=== PATIENT | female | born 1980 | race Caucasian/White ===

== ENCOUNTER 2020-07-03 11:26 | Outpatient (CLI) | payer OTHER ==
--- NOTE | 2020-07-04 09:49 | Mammography Report ---
BILATERAL DIGITAL SCREENING MAMMOGRAM 3D/2D: 07/03/2020 CLINICAL: Routine screening. Comparison is made to exams dated: 06/30/2019 mammogram and 07/12/2018 mammogram - [facility]. The tissue of both breasts is heterogeneously dense. This may lower the sensitivity of mammog emmanuelle. No significant masses, calcifications, or other findings are seen in either breast. There has been no significant interval change. IMPRESSION: NEGATIVE There is no mammographic evidence of malignancy. A 1 year screening mammogram is recommended. This exam was interpreted at Station ID: [id number]. NOTE: For mammograms, a report in lay terms will be sent to the patient. Approximately 15% of breast malignancies will not be visualized mammographically. In the management of a palpable breast mass, a negative mammogram must not discourage biopsy of a clinically suspicious lesion. Electronically Signed By: Aleisha garibay/[email or web address]:07/03/2020 12:25:17 ACR BI-RADS Category 1: Negative 3341F PARENCHYMAL PATTERN: (D) - The breast(s) demonstrate(s) heterogeneously dense fibroglandular aimee chin. BI-RADS CATEGORY: (1) - 1 RECOMMENDATION: (ANNUAL) - Recommend routine annual screening mammography. [id number] 1 year screening LATERALITY: (B)
== END 2020-07-03 11:27 | disposition home or self-care (01) ==
LOC: DI.N 11:26
DX: Z12.31 Encounter for screening mammogram for malignant neoplasm of breast (principal)
CPT/HCPCS: 77063; 77067

== ENCOUNTER 2020-10-06 14:50 | Emergency (ER) | payer OTHER ==
--- NOTE | 2020-10-06 16:35 | ED Physician Documentation ---
PD HPI UPPER EXT INJURY - Stated complaint Stated Complaint: FINGER LAC - Chief complaint Chief Complaint: Laceration - History obtained from History obtained from: Patient - History of Present Illness Location: Right, Finger (littel finger tip) Type of injury: Laceration (cutting food and sliced off tip of skin on little finger. Had trouble getting bleeding to stop.) Where injury occurred: Home Timing - onset: Today Timing - details: Abrupt onset, Still present Worsened by: Palpating Associated symptoms: No: Weakness, Numbness Similar symptoms before: Has not had sx before Review of Systems Constitutional: denies: Fever Nose: denies: Rhinorrhea / runny nose, Congestion Throat: denies: Sore throat Respiratory: denies: Cough Neurologic: denies: Focal weakness, Numbness PD PAST MEDICAL HISTORY - Past Medical History Past Medical History: No - Allergies Allergies/Adverse Reactions: Allergies Allergy/AdvReac Type Severity Reaction Status Date / Time No Known Drug Allergies Allergy Verified 10/06/20 15:00 PD ED PE NORMAL - Vitals Vital signs reviewed: Yes - General General: Alert and oriented X 3, No acute distress, Well developed/nourished - Derm Derm: Normal color, Warm and dry - Extremities Extremities: Other (right little finger tip with 1 cm area of avulsion of tissue, just to fatty tissue in center, with mild capillary bleeding. No FB. Distal nail is involved but not the nailbed. No disruption of the proximal nailbed. ) - Neuro Neuro: Alert and oriented X 3, No motor deficit, No sensory deficit Results - Vitals Vitals: Vital Signs - 24 hr 10/06/20 10/06/20 15:00 17:24 Temperature 37.0 C 36.5 C Heart Rate 66 72 Respiratory 18 19 Rate Blood Pressure 118/66 123/67 O2 Saturation 100 100 Oxygen O2 Source Room air PD MEDICAL DECISION MAKING - ED course Complexity details: considered differential (topical with Monsel's solution stopped the bleeding. Then vaseline imed strip and gauze then tube gauze pressure dressing. NO bleeding. ), d/w patient Departure - Departure Disposition: 01 Home, Self Care Clinical Impression: Avulsion, finger tip Qualifiers: Encounter type: initial encounter Qualified Code(s): S61.209A - Unspecified open wound of unspecified finger without damage to nail, initial encounter Condition: Stable Record reviewed to determine appropriate education?: Yes Instructions: ED Avulsion Dermal Follow-Up: SELVIN LOPEZ, DO [Primary Care Provider] - Comments: Leave the initial dressing on into tomorrow and can even leave it on for a day or more. After that remove it and assume normal skin wound care of cleaning with soap and water and applying some ointment and keeping it clean. The avulsion is small enough that it should heal in from the edges and be mostly skin with small scarring only. These are low likelihood for infection. Recheck if some infection does develop. Tylenol ibuprofen if needed for pains. Discharge Date/Time: 10/06/20 17:24
[2020-10-06 17:25] VITALS: BP 123/67
== END 2020-10-06 17:24 | disposition home or self-care (01) ==
LOC: ED 14:50
DX: S61.216A Laceration without foreign body of right little finger without damage to nail, initial encounter (principal); W26.0XXA Contact with knife, initial encounter; Y93.G1 Activity, food preparation and clean up
CPT/HCPCS: 99281; 99282

== ENCOUNTER 2021-11-11 12:48 | Emergency (ER) | payer OTHER ==
--- NOTE | 2021-11-11 13:47 | ED Physician Documentation ---
PD HPI DYSPNEA - Stated complaint Stated Complaint: C+ DIZZY/SOA - History obtained from History obtained from: Patient - Additional information Additional information: This is a healthy young woman with history of anemia and thalassemia, no possibility of . She is fully vaccinated against COVID with Moderna. She became symptomatic with COVID 8 days ago and subsequently tested positive about 6 days ago. From the perspective of the typical COVID system symptoms to be getting much better but today feels presyncopal with short of breath. She denies chest pain or pedal edema. Review of Systems Constitutional: reports: Fatigue. denies: Fever, Chills Nose: denies: Rhinorrhea / runny nose Throat: denies: Sore throat Cardiac: denies: Chest pain / pressure, Palpitations Respiratory: reports: Dyspnea. denies: Cough PD PAST MEDICAL HISTORY - Past Surgical History Past Surgical History: No - Allergies Allergies/Adverse Reactions: Allergies Allergy/AdvReac Type Severity Reaction Status Date / Time No Known Drug Allergies Allergy Verified 11/11/21 13:49 - Social History Does the pt smoke?: No Smoking Status: Never smoker Does the pt drink ETOH?: No Does the pt have substance abuse?: No PD ED PE NORMAL - Vitals Vital signs reviewed: Yes - General General: Alert and oriented X 3, No acute distress - HEENT HEENT: PERRL, EOMI - Neck Neck: Supple, no meningeal sign, No bony TTP - Cardiac Cardiac: RRR, No murmur - Respiratory Respiratory: No respiratory distress, Clear bilaterally - Extremities Extremities: No edema, No calf tenderness / cord - Neuro Neuro: Alert and oriented X 3, Normal speech Results - Vitals Vitals: Vital Signs - 24 hr 11/11/21 13:47 Temperature 37.1 C Heart Rate 61 Respiratory 18 Rate Blood Pressure 112/74 O2 Saturation 100 Oxygen O2 Source Room air - EKG (time done) 1359 Rate: Rate (enter#) (59) Rhythm: NSR [place]: Normal Intervals: Normal NV QRS: Normal Ischemia: Normal ST segments - Labs Labs: Laboratory Tests 11/11/21 11/11/21 11/11/21 14:13 14:13 14:13 WBC 4.4 L RBC 4.74 Hgb 9.6 L Hct 30.6 L MCV 64.6 L MCH 20.3 L MCHC 31.4 L RDW 14.0 Plt Count 149 Manual Slide Review Indicated D-Dimer 217.7 Sodium 138 Potassium 3.6 Chloride 103 Carbon Dioxide 25 Anion Gap 10.0 BUN 16 Creatinine 0.8 Estimated GFR (MDRD) 78 L Glucose 91 Calcium 9.0 Troponin I High Sens 11/11/21 14:13 WBC RBC Hgb Hct MCV MCH MCHC RDW Plt Count Manual Slide Review D-Dimer Sodium Potassium Chloride Carbon Dioxide Anion Gap BUN Creatinine Estimated GFR (MDRD) Glucose Calcium Troponin I High Sens < 2.3 L PD MEDICAL DECISION MAKING - ED course ED course: 41-year-old woman who was diagnosed with COVID 8 days ago now with presyncope and shortness of breath. Her lungs are clear and her saturations are 100%. Worry would be for post-COVID myocarditis or thromboembolic disease which we will screen for with EKG, troponin, and D-dimer. 41-year-old woman who has short of breath and dizziness in the setting of COVID. She appears well with a normal exam and unremarkable vital signs, pulse oximetry of 100%. She is anemic but in discussion with her hemoglobin of around 10 is her baseline. D-dimer and troponin were negative. The patient and family were counseled as to the diagnosis and need for follow- up. I counseled the patient with regard to signs and symptoms that would necessitate an urgent reevaluation in the emergency department. They understand they are welcome to return at any time if worse or if not improving as expected. This document was made in part using voice recognition software. While efforts are made to proofread this documents, sound alike and grammatical errors may occur. Departure - Departure Disposition: 01 Home, Self Care Clinical Impression: Dizziness, Dyspnea due to COVID-19 Condition: Good Record reviewed to determine appropriate education?: Yes Instructions: ED Dyspnea Shortness of Breath Comments: Call your doctor to arrange a follow-up appointment, make the next available appointment. In the interim, return anytime if worse or if new symptoms develop.
[2021-11-11 14:23] LABS: BASOPHILS % (AUTO) 0.2 %; EOSINOPHILS % (AUTO) 0.9 %; HCT - HEMATOCRIT 30.6 % (37.0-47.0); HGB - HEMOGLOBIN 9.6 g/dL (12.0-16.0); LYMPHOCYTES # (AUTO) 1.3 10^3/uL (1.5-3.5); LYMPHOCYTES % (AUTO) 28.3 %; MEAN CORPUSCULAR HEMOGLOBIN 20.3 pg (27.0-31.0); MEAN CORPUSCULAR HGB CONC 31.4 g/dL (32.0-36.0); MEAN CORPUSCULAR VOLUME 64.6 fL (81.0-99.0); MONOCYTES # (AUTO) 0.3 10^3/uL (0.0-1.0); MONOCYTES % (AUTO) 5.9 %; NEUTROPHILS # (AUTO) 2.8 10^3/uL (1.5-6.6); NEUTROPHILS % (AUTO) 64.2 %; PLT - PLATELET COUNT 149 10^3/uL (130-450); RED BLOOD COUNT 4.74 10^6/uL (4.20-5.40); WHITE BLOOD COUNT 4.4 x10^3/uL (4.8-10.8)
[2021-11-11 14:43] LABS: SLIDE REVIEW? Indicated
[2021-11-11 14:49] LABS: CREATININE 0.8 mg/dL (0.4-1.0)
[2021-11-11 14:53] LABS: POTASSIUM 3.6 mmol/L (3.5-5.0)
[2021-11-11 15:27] LABS: PLATELET ESTIMATE, MANUAL NORMAL (130-450,000) (NORMAL); PLATELET MORPHOLOGY NORMAL APPEARANCE (NORMAL)
[2021-11-11 15:30] VITALS: BP 127/78
== END 2021-11-11 15:30 | disposition home or self-care (01) ==
LOC: ED 12:48
DX: U07.1 COVID-19 (principal); R06.02 Shortness of breath; R42 Dizziness and giddiness; D64.9 Anemia, unspecified
CPT/HCPCS: 36415; 80048; 84484; 85025; 85379; 93005; 99283; 99284

== ENCOUNTER 2022-04-24 10:50 | Emergency (ER) | payer OTHER ==
[2022-04-24 11:09] VITALS: BP 100/68
--- NOTE | 2022-04-24 11:50 | ED Physician Documentation ---
PD HPI BACK PAIN - Stated complaint Stated Complaint: SEVERE BACK PAIN - Chief complaint Chief Complaint: Back Pain - History obtained from History obtained from: Patient - History of Present Illness Timing - onset: How many days ago (several) Timing - duration: Days Timing - details: Gradual onset Location: Lower, Right Quality: Pain, Spasm Associated symptoms: No: Fever, Weakness, Numbness, Incontinent of urine Improves with: Rest. No: Meds (OTC meds at home) Worsened by: Movement, Lifting, Twisting. No: Palpation Contributing factors: Lifting (she had been doing some lfiting and moving of box es and furniture. [place] a twinge of pain with lifting but not hurting that much. Pain increased more over next days and severe with spasms today.), Twisting Similar symptoms before: Has not had sx before Recently seen: Not recently seen Review of Systems Constitutional: denies: Fever, Chills, Myalgias GI: denies: Abdominal Pain, Nausea, Vomiting, Diarrhea : denies: Incontinent Skin: denies: Rash, Lesions Musculoskeletal: reports: Back pain. denies: Neck pain Neurologic: denies: Focal weakness, Numbness PD PAST MEDICAL HISTORY - Past Medical History Cardiovascular: None Respiratory: None Neuro: None Endocrine/Autoimmune: None Musculoskeletal: None - Past Surgical History Past Surgical History: No - Present Medications Home Medications: Ambulatory Orders Medication Instructions Recorded Confirmed HYDROcod/ACETAM 5/325 [[place] 5/325] 1 ea PO Q6H PRN #18 tablet 04/24/22 Lidocaine Patch 5% [Lidoderm Patch] 1 patch TOP DAILY PRN #10 patch 04/24/22 Meloxicam [Mobic] 7.5 mg PO BID 10 Days #20 tablet 04/24/22 tiZANidine [Zanaflex] 4 mg PO Q8H PRN #25 tablet 04/24/22 - Allergies Allergies/Adverse Reactions: Allergies Allergy/AdvReac Type Severity Reaction Status Date / Time No Known Drug Allergies Allergy Verified 11/11/21 13:49 - Social History Does the pt smoke?: No Smoking Status: Never smoker Does the pt drink ETOH?: No Does the pt have substance abuse?: No PD ED PE NORMAL - Vitals Vital signs reviewed: Yes - General General: Alert and oriented X 3, Well developed/nourished, Other (appears in pain from lower back, with guarded ROM and apparent spasms with mvoement.) - Abdomen Abdomen: Soft, Non tender - Female Female : Deferred - Rectal Rectal: Deferred - Back Back: No spinal TTP, Other (tender lower right muscles without trigger point per se. ) - Derm Derm: Normal color, No rash - Extremities Extremities: No edema, No calf tenderness / cord - Neuro Neuro: Alert and oriented X 3, No motor deficit, No sensory deficit, Normal speech Results - Vitals Vitals: Vital Signs - 24 hr 04/24/22 11:06 Temperature 37.0 C Heart Rate 80 Respiratory 19 Rate Blood Pressure 100/68 O2 Saturation 100 Oxygen O2 Source Room air PD MEDICAL DECISION MAKING - ED course Complexity details: considered differential (low back pain onset after use/lifting, without red flags on hisotyr.), d/w patient Departure - Departure Disposition: 01 Home, Self Care Clinical Impression: Acute low back pain due to trauma Condition: Stable Record reviewed to determine appropriate education?: Yes Instructions: ED Low Back Pain Injury Follow-Up: SELVIN LOPEZ DO [Primary Care Provider] - Prescriptions: Lidocaine Patch 5% [Lidoderm Patch] 1 patch TOP DAILY PRN #10 patch PRN Reason: pain Meloxicam [Mobic] 7.5 mg PO BID 10 Days #20 tablet HYDROcod/ACETAM 5/325 [[place] 5/325] 1 ea PO Q6H PRN #18 tablet PRN Reason: Pain tiZANidine [Zanaflex] 4 mg PO Q8H PRN #25 tablet PRN Reason: Spasms Comments: It sounds likely that you have a muscular or ligament injury in the back with spasms. Consideration could be for some disc inflammation or such as well. It does not sound like a pinched nerve by symptoms. We typically would treat this with a combination of anti-inflammatories, muscle relaxants, pain medicine. Also adding physical modalities of heat, stretching, light activity and massage/physical therapy. Common guidelines for back pain typically suggest no imaging indicated initially. See how your symptoms do with the above regimen and most will get better over 2 to 3 weeks. If persistent symptoms,'s sometimes further imaging may be warranted. I transmitted prescriptions for meloxicam anti-inflammatory, tizanidine muscle relaxant and hydrocodone pain medicine to the [facility] here in [place]. Also seek out perhaps massage or chiropractic treatment. I am prescribing a short course of narcotic pain medication for you. These are potentially dangerous and addictive medications that should be used carefully. These medications may constipate you. Take an aviu-oaj-uvuznza stool softener such as docusate twice daily with plenty of water while taking these medications. If you go 24 hours without a bowel movement, take [id number] MiraLAX, per package instructions. Do not drink or drive while taking these medications. If you received narcotic or sedating medications while in the emergency department do not drive for 24 hours. Store this medication in a safe, secure place and out of reach of children. It is a violation of federal law to give or sell this medication to another person or to use in a manner other than prescribed. The ED will not refill narcotic prescriptions, including prescriptions lost or stolen. You can dispose of unwanted medications at the [facility]'s office or at several pharmacies such as [facility]. Discharge Date/Time: 04/24/22 13:19
[2022-04-24] MEDS ORDERED: ACETAMINOPHEN 325 MG TABLET PO STA (12:11)
[2022-04-24] MEDS ORDERED: LIDOCAINE PATCH 5% TOP STA (12:11)
[2022-04-24] MEDS ORDERED: KETOROLAC 30 MG/ML VIAL IM STA (12:11)
== END 2022-04-24 13:19 | disposition home or self-care (01) ==
LOC: ED 10:50
DX: M54.50 Low back pain, unspecified (principal); X50.0XXA Overexertion from strenuous movement or load, initial encounter
CPT/HCPCS: 96372; 99282; 99283; A9270

== ENCOUNTER 2024-02-06 15:07 | Outpatient (CLI) | payer OTHER ==
--- NOTE | 2024-02-06 17:30 | Ultrasound Report ---
PROCEDURE: Renal (Retroperitoneal) INDICATIONS: HEMATURIA TECHNIQUE: Real-time scanning was performed of the retroperitoneal organs, with image documentation. COMPARISON: Pelvic ultrasound 12/28/2023 FINDINGS: Kidneys: Kidneys are normal in size. Right kidney measures 11.2 cm long; left kidney measures 9.3 c m long. Right renal cortical thickness is 0.9 cm; left renal cortical thickness is 1.1 cm. No solid masses, hydronephrosis, or nephrolithiasis. Bladder: Pre-void bladder volume is 312 mL. Post-void residual is 14 mL. Pre-void images demonstra te no intraluminal masses or stones. On pre-void images, bilateral ureteral jets are noted with colo r Doppler interrogation. (Of note, ureteral jets may not be detectable in up to 25% of cases due to insufficient differences in specific gravity between ureteral and bladder urine). Miscellaneous: No free abdominal fluid. IMPRESSION: No visualized cause of hematuria. As clinically indicated, further evaluation with CT IVP may be obta ined. Reviewed by: Mahi Villanueva MD on 02/06/2024 5:29 PM PDT Approved by: Mahi Villanueva MD on 02/06/2024 5:29 PM PDT Station ID: [id number]
== END 2024-02-06 15:08 | disposition home or self-care (01) ==
LOC: DI 15:07
DX: R31.0 Gross hematuria (principal)

== ENCOUNTER 2024-02-13 07:38 | Outpatient (CLI) | payer OTHER ==
--- NOTE | 2024-02-13 18:01 | Ultrasound Report ---
PROCEDURE: Pelvic w/Transvaginal INDICATIONS: LEFT OVARIAN CYST TECHNIQUE: Real-time scanning was performed of the pelvic organs, with image documentation. Additional endovagi nal scanning was necessary due to incomplete visualization of the adnexal and endometrial structures by transabdominal scanning. COMPARISON: Ultrasound December 28, 2023 FINDINGS: Uterus: Uterus is anteverted and normal in size at 7.6 x 4.4 x 5 cm. The myometrium is heterogeneou s. The endometrium measures 2 mm in combined thickness. Ovaries: The right ovary measures 3 x 2 x 2.1 cm, with a calculated ovarian volume of 6.7 cc. The l eft ovary measures 1.7 x 1.1 x 1.6 cm, with a calculated ovarian volume of 1.5 cc. The ovaries have a normal sonographic appearance. Less than 12 follicles can be seen in each ovary. No adnexal aryan s are seen. No cystic lesions measuring greater than 3 cm. Other: No pathologic free abdominal or pelvic fluid. IMPRESSION: Resolution of previously seen left hemorrhagic cyst. Reviewed by: Damion Buenrostro MD on 02/13/2024 5:00 PM KAITLIN Approved by: Damion Buenrostro MD on 02/13/2024 5:00 PM KAITLIN Station ID: [id number]
== END 2024-02-13 07:39 | disposition home or self-care (01) ==
LOC: DI 07:38
PROVIDERS: ATTEND Obstetrics & Gynecology
DX: Z09 Encounter for follow-up examination after completed treatment for conditions other than malignant neoplasm (principal); Z87.42 Personal history of other diseases of the female genital tract

== ENCOUNTER 2024-03-25 18:36 | Outpatient (CLI) | payer OTHER ==
--- NOTE | 2024-03-27 10:27 | Ultrasound Report ---
PROCEDURE: Pelvic w/Transvaginal INDICATIONS: L OVARIAN CYST TECHNIQUE: Real-time scanning was performed of the pelvic organs, with image documentation. Additional endovagi nal scanning was necessary due to incomplete visualization of the adnexal and endometrial structures by transabdominal scanning. COMPARISON: Pelvic ultrasound 02/13/2024. FINDINGS: Uterus: Uterus is anteverted and normal in size at 7.6 x 4.6 x 5.7 cm. The myometrium is heterogene ous. The endometrium measures 15 mm in combined thickness. Intrauterine device is present in expect ed position within the endometrial canal. Ovaries: The right ovary measures 3.5 x 1.3 x 2.7 cm, with a calculated ovarian volume of 6.6 cc. T he left ovary measures 2.3 x 2.2 x 2.0 cm, with a calculated ovarian volume of 5.2 cc. The ovaries h ave a normal sonographic appearance. Less than 12 follicles can be seen in each ovary. Multiple rig ht ovary subcentimeter follicles are present. Left adnexal simple paraovarian cyst is seen measuring 2 x 1.4 x 1.5 cm. No solid adnexal masses are seen. 2 thick-walled left ovarian cysts are seen measur ing 1.8 x 1.3 x 2.0 cm and 1.7 x 1.5 x 1.4 cm. Other: No pathologic free abdominal or pelvic fluid. IMPRESSION: 1.Two small complicated left ovarian cysts are seen. Follow-up ultrasound could be performed in 6-12 weeks for further evaluation. 2.Intrauterine device is seen in expected position. Reviewed by: Joey Vidal MD on 03/27/2024 10:26 AM PDT Approved by: Joey Vidal MD on 03/27/2024 10:26 AM PDT Station ID: [id number]
== END 2024-03-25 18:37 | disposition home or self-care (01) ==
LOC: DI 18:36
PROVIDERS: ATTEND Obstetrics & Gynecology
DX: N83.202 Unspecified ovarian cyst, left side (principal); Z97.5 Presence of (intrauterine) contraceptive device